=== PATIENT | female | born 1985 | race African-American/Black ===

== ENCOUNTER 2017-04-17 10:32 | Inpatient (IN) ==
[2017-04-17 11:07] LABS: Basophils % 0.2 % (0.0-0.8); Eosinophils # 0.1 10*3/uL (0.0-0.87); Eosinophils % 0.7 % (0.00-10.9); Hematocrit 39.2 VOL% (35.7-47.0); Immature Granulocytes % 0.6 %; Immature Granulocytes Absolute 0.05 #; Lymphocytes # 1.2 10*3/uL (1.4-4.0); Lymphocytes % 15.2 % (21.3-54.2); Mean Corpuscular HGB Conc 35.7 GM/DL (32-36); Mean Corpuscular Hemoglobin 33 PG (27-34); Mean Corpuscular Volume 91.4 FL (87-102); Mean Platelet Volume 10.3 FL (9.6-12.0); Monocytes # 0.7 10*3/uL (0.11-0.8); Monocytes % 9.2 % (1.7-12.7); Neutrophils % 74.1 % (38.7-73.9); Platelet Count 186 T/CUMM (130-400); Red Blood Count 4.29 MC/CUMM (3.8-5.5); Red Cell Distribution Width 13.9 % (9.3-17.3); White Blood Count 8.1 T/CUMM (4-12)
[2017-04-17 11:16] LABS: INR 0.9; PT Patient Result 9.7 SECS; Partial Thromboplastin Time 29.4 SECS (0-40)
[2017-04-17 11:40] LABS: Albumin 2.5 G/DL (3.4-5.0); Bilirubin,Total 0.4 MG/DL (0.2-1.0); Calcium 8.1 MG/DL (8.5-10.1); Osmolality,Calculated 274.4 MOS/KG (273-304); Uric Acid 5.3 MG/DL (2.6-6.0)
[2017-04-17] MEDS ORDERED: CALCIUM GLUCONATE 1,000 MG in SODIUM CHLORIDE 0.9% 100 ML IV PRN (12:05)
[2017-04-17] MEDS ORDERED: MAGNESIUM SULF RIDER 100 ML IV ONE (12:05)
[2017-04-17] MEDS ORDERED: MAGNESIUM SULF DRIP 40 GM/1,000 ML ML IV ONE (12:17)
[2017-04-17] MEDS: LACTATED RINGERS 1,000 ML IV SCH ×2 (12:37→23:20)
[2017-04-17] MEDS: MAGNESIUM SULF DRIP 40 GM/1,000 ML ML IV SCH (12:37)
[2017-04-17] MEDS: BETAMETH SODIUM PHOS/ACETATE 30 MG/5 ML VIAL IM SCH (13:28)
[2017-04-17 14:11] LABS: Basophils % 0.4 % (0.0-0.8); Eosinophils % 0.4 % (0.00-10.9); Hematocrit 38.9 VOL% (35.7-47.0); Hemoglobin 13.8 GM/DL (12.0-16.0); Immature Granulocytes % 0.4 %; Immature Granulocytes Absolute 0.03 #; Lymphocytes # 1.3 10*3/uL (1.4-4.0); Lymphocytes % 17.5 % (21.3-54.2); Mean Corpuscular HGB Conc 35.5 GM/DL (32-36); Mean Corpuscular Hemoglobin 32 PG (27-34); Mean Corpuscular Volume 90.5 FL (87-102); Mean Platelet Volume 10.3 FL (9.6-12.0); Monocytes # 0.6 10*3/uL (0.11-0.8); Monocytes % 8.2 % (1.7-12.7); Neutrophils # 5.5 10*3/uL (1.4-7.4); Neutrophils % 73.1 % (38.7-73.9); Platelet Count 188 T/CUMM (130-400); Red Cell Distribution Width 13.9 % (9.3-17.3); White Blood Count 7.5 T/CUMM (4-12)
[2017-04-17 14:41] LABS: Albumin 2.6 G/DL (3.4-5.0); Bilirubin,Total 0.5 MG/DL (0.2-1.0); Calcium 8.2 MG/DL (8.5-10.1); Osmolality,Calculated 273.4 MOS/KG (273-304); Potassium 3.8 MMOL/L (3.5-5.1); Total Protein 6.1 G/DL (6.4-8.3)
[2017-04-17] MEDS ORDERED: hydrALAZINE 20 MG/1 ML VIAL IV ONE ×2 (16:45→19:42)
--- NOTE | 2017-04-17 16:51 | OB/GYN History & Physical ---
History of Present Illness Chief complaint: [facility] History of present illness: Ms. Parsons is a 32 year old female Primigravida at 34 weeks sent from the office secondary to elevated blood pressures. Patient reports headache 2 days with altered vision of the last couple of days. She also reports swelling a significant weight gain. Home Medications Medication Instructions Recorded Confirmed Type Ferrous Gluconate [Iron] 1 mg PO DAILY 04/17/17 04/17/17 History Vit 108/Iron/Folic AC 1 mg PO DAILY 04/17/17 04/17/17 History [ One Tablet] Allergies Allergy/AdvReac Type Severity Reaction Status Date / Time No Known Allergies Allergy Verified 04/17/17 10:46 12 point system: reviewed and no additional remarkable complaints except as stated Medical,Surgical,& Family Hx - Medical History Reproductive: No history of: Ectopic , Complication - Surgical History Reproductive Surgeries: Patient denies;: Section - Social History Smoking Status: Never smoker Frequency of Alcohol Use: None 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 - 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 General appearance: no acute distress - Head Head exam: Present: normocephalic - ENT ENT exam: Present: normal exam - Neck Neck exam: Present: normal inspection - Respiratory Respiratory exam: Present: clear to auscultation bilaterally - Cardiovascular Cardiovascular exam: Present: regular rate and rhythm - GI/Abdominal GI/Abdominal exam: Present: normal bowel sounds, soft - Extremities Exam Extremities exam: Present: edema (+1 of the lower extremities bilaterally) - Back Exam Back exam: Present: normal inspection - Neurological Exam Neurological exam: Present: alert, oriented X3 - Psychiatric Psychiatric exam: Present: normal affect, normal mood - Skin Skin exam: Present: normal color, warm Assessment and Plan (1) Severe preeclampsia Status: Acute Assessment and plan: Patient admitted for magnesium sulfate and Cytotec induction with expected vaginal delivery. Will monitor blood pressures carefully Current Visit: Yes (2) 34 weeks gestation of Status: Acute Current Visit: Yes Results - Labs CBC & BMP: 04/18/17 13:52 04/18/17 13:52 Quality Measures - VTE Contraindication to Pharmacological VTE Prophylaxis: High Risk of Bleeding
[2017-04-17] MEDS ORDERED: ACETAMINOPHEN 500 MG TABLET PO PRN (19:56)
[2017-04-17 21:07] LABS: Apearance,Urine Slightly Hazy (Clear); Bilirubin,Urine Negative (Negative); Blood, Urine Negative (Negative); Glucose,Urine (UA) Negative (Negative); Ketones,Urine 80 mg/dL (Negative); Mucus,Urine Occasional /LPF (Occasional); Nitrite,Urine Negative (Negative); Protein,Urine Negative; RBC,Urine <1 /HPF (0-4); Squamous Epithelial Cell,Urine Occasional /HPF (0-10); Urine Color Yellow (Yellow); Urine Specific Gravity 1.009 (1.001-1.035); Urine Urobilinogen < 2.0 EU/DL (0.2-1.0); WBC,Urine 1 /HPF (0-6)
[2017-04-17 21:20] LABS: Bilirubin,Total 0.6 MG/DL (0.2-1.0); Calcium 8.1 MG/DL (8.5-10.1); Magnesium 5.5 MG/DL (1.8-2.4); Osmolality,Calculated 269.7 MOS/KG (273-304); Potassium 4.1 MMOL/L (3.5-5.1); Total Protein 7.2 G/DL (6.4-8.3)
[2017-04-17 21:33] LABS: Basophils % 0.2 % (0.0-0.8); Hematocrit 44.6 VOL% (35.7-47.0); Hemoglobin 15.5 GM/DL (12.0-16.0); Immature Granulocytes % 3.4 %; Immature Granulocytes Absolute 0.34 #; Lymphocytes # 0.7 10*3/uL (1.4-4.0); Lymphocytes % 7.2 % (21.3-54.2); Mean Corpuscular HGB Conc 34.8 GM/DL (32-36); Mean Corpuscular Hemoglobin 32 PG (27-34); Mean Platelet Volume 10.3 FL (9.6-12.0); Monocytes # 0.2 10*3/uL (0.11-0.8); Neutrophils # 8.6 10*3/uL (1.4-7.4); Neutrophils % 87.2 % (38.7-73.9); Platelet Count 194 T/CUMM (130-400); Red Blood Count 4.85 MC/CUMM (3.8-5.5); White Blood Count 9.9 T/CUMM (4-12)
[2017-04-18 01:50] LABS: Basophils % 0.2 % (0.0-0.8); Hematocrit 42.2 VOL% (35.7-47.0); Hemoglobin 14.7 GM/DL (12.0-16.0); Immature Granulocytes % 1.4 %; Immature Granulocytes Absolute 0.15 #; Lymphocytes # 0.8 10*3/uL (1.4-4.0); Lymphocytes % 7.4 % (21.3-54.2); Mean Corpuscular HGB Conc 34.8 GM/DL (32-36); Mean Corpuscular Hemoglobin 32 PG (27-34); Mean Corpuscular Volume 92.3 FL (87-102); Mean Platelet Volume 10.3 FL (9.6-12.0); Monocytes # 0.5 10*3/uL (0.11-0.8); Monocytes % 4.5 % (1.7-12.7); Neutrophils # 9.3 10*3/uL (1.4-7.4); Neutrophils % 86.5 % (38.7-73.9); Platelet Count 186 T/CUMM (130-400); Red Blood Count 4.57 MC/CUMM (3.8-5.5); Red Cell Distribution Width 14.1 % (9.3-17.3); White Blood Count 10.8 T/CUMM (4-12)
[2017-04-18 02:12] LABS: Albumin 2.5 G/DL (3.4-5.0); Bilirubin,Total 0.6 MG/DL (0.2-1.0); Calcium 7.6 MG/DL (8.5-10.1); Magnesium 5.5 MG/DL (1.8-2.4); Osmolality,Calculated 270.7 MOS/KG (273-304); Potassium 3.8 MMOL/L (3.5-5.1); Total Protein 6.1 G/DL (6.4-8.3)
[2017-04-18] MEDS: BETAMETH SODIUM PHOS/ACETATE 30 MG/5 ML VIAL IM SCH (02:25)
[2017-04-18] MEDS: MAGNESIUM SULF DRIP 40 GM/1,000 ML ML IV SCH (06:30)
[2017-04-18 07:45] LABS: Basophils % 0.1 % (0.0-0.8); Hematocrit 42.9 VOL% (35.7-47.0); Immature Granulocytes % 1.4 %; Immature Granulocytes Absolute 0.18 #; Lymphocytes # 0.8 10*3/uL (1.4-4.0); Mean Corpuscular Hemoglobin 32 PG (27-34); Mean Corpuscular Volume 91.1 FL (87-102); Mean Platelet Volume 10.3 FL (9.6-12.0); Monocytes # 0.4 10*3/uL (0.11-0.8); Monocytes % 3.5 % (1.7-12.7); Neutrophils # 11.2 10*3/uL (1.4-7.4); Platelet Count 211 T/CUMM (130-400); Red Blood Count 4.71 MC/CUMM (3.8-5.5); White Blood Count 12.6 T/CUMM (4-12)
[2017-04-18] MEDS ORDERED: OXYTOCIN/LR 20 UNIT/1,000 ML BAG IV SCH (08:00)
--- NOTE | 2017-04-18 08:06 | OB/GYN Progress Note ---
Assessment and Plan (1) Severe preeclampsia Status: Acute Assessment and plan: Patient admitted for magnesium sulfate and Cytotec induction with expected vaginal delivery. Will monitor blood pressures carefully Now that her membranes ruptured will discontinue the Cytotec and began Pitocin. We will continue to monitor blood pressures carefully as well as continue magnesium sulfate. 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 IUPC placed with ease Presentation: Vertex Heart Rate: 140s-150s with good [id number]-[id number] variability. No decelerations Barling: Contractions irregular - Respiratory Respiratory exam: Present: clear to auscultation bilaterally - Cardiovascular Cardiovascular exam: Present: regular rate and rhythm - Extremities Exam Extremities exam: Present: edema (+1 edema of the lower extremities bilaterally +1 deep tendon reflexes) - Neurological Exam Neurological exam: Present: alert, oriented X3 - Psychiatric Psychiatric exam: Present: normal affect, normal mood Results - Labs CBC & BMP: 04/18/17 07:38 04/18/17 01:39
[2017-04-18 08:26] LABS: Albumin 2.7 G/DL (3.4-5.0); Calcium 7.5 MG/DL (8.5-10.1); Osmolality,Calculated 269.8 MOS/KG (273-304); Potassium 4.1 MMOL/L (3.5-5.1); Total Protein 6.5 G/DL (6.4-8.3)
[2017-04-18] MEDS ORDERED: AMPICILLIN INJ 2,000 MG in SODIUM CHLORIDE 0.9% 50 ML IV SCH (09:30)
[2017-04-18] MEDS ORDERED: fentaNYL 2 MCG/ROPIV 0.2% EPID 150 ML EPIDURAL SCH (11:56)
[2017-04-18] MEDS ORDERED: ePHEDrine 50 MG/ML AMP IV PRN (11:56)
[2017-04-18] MEDS ORDERED: FAMOTIDINE 20 MG/2 ML VIAL IV ONE (11:56)
[2017-04-18] MEDS ORDERED: PROMETHAZINE 25 MG/1 ML VIAL IM ONE (11:56)
[2017-04-18] MEDS ORDERED: CITRIC ACID/SODIUM CITRATE 30 ML UDCUP PO ONE (11:56)
[2017-04-18] MEDS ORDERED: LACTATED RINGERS 1,000 ML IV ONE (11:56)
[2017-04-18] MEDS ORDERED: diphenhydrAMINE 50 MG/1 ML VIAL IV PRN ×2 (11:56)
[2017-04-18] MEDS ORDERED: hydrOXYzine HCL 25 MG/1 ML VIAL IM PRN (11:56)
[2017-04-18] MEDS ORDERED: ONDANSETRON 4 MG/2 ML VIAL ONE (12:29)
[2017-04-18 14:01] LABS: Basophils % 0.2 % (0.0-0.8); Hematocrit 45.1 VOL% (35.7-47.0); Hemoglobin 15.5 GM/DL (12.0-16.0); Immature Granulocytes % 1.2 %; Immature Granulocytes Absolute 0.17 #; Lymphocytes # 0.9 10*3/uL (1.4-4.0); Lymphocytes % 6.1 % (21.3-54.2); Mean Corpuscular HGB Conc 34.4 GM/DL (32-36); Mean Corpuscular Hemoglobin 32 PG (27-34); Mean Platelet Volume 10.6 FL (9.6-12.0); Monocytes # 0.9 10*3/uL (0.11-0.8); Monocytes % 6.3 % (1.7-12.7); Neutrophils # 12.6 10*3/uL (1.4-7.4); Neutrophils % 86.2 % (38.7-73.9); Platelet Count 202 T/CUMM (130-400); Red Blood Count 4.85 MC/CUMM (3.8-5.5); Red Cell Distribution Width 14.4 % (9.3-17.3); White Blood Count 14.7 T/CUMM (4-12)
[2017-04-18 14:29] LABS: Albumin 2.7 G/DL (3.4-5.0); Bilirubin,Total 0.7 MG/DL (0.2-1.0); Calcium 7.4 MG/DL (8.5-10.1); Osmolality,Calculated 267.1 MOS/KG (273-304); Potassium 3.9 MMOL/L (3.5-5.1); Total Protein 6.7 G/DL (6.4-8.3)
[2017-04-18 15:30] LABS: Apearance,Urine CLEAR (Clear); Bilirubin,Urine Negative (Negative); Blood, Urine Negative (Negative); Glucose,Urine (UA) Negative (Negative); Hyaline Casts,Urine 148 /LPF (0-3); Ketones,Urine 80 mg/dL (Negative); Mucus,Urine Occasional /LPF (Occasional); Nitrite,Urine Negative (Negative); Protein,Urine Negative; RBC,Urine 1 /HPF (0-4); Squamous Epithelial Cell,Urine Occasional /HPF (0-10); Urine Color Yellow (Yellow); Urine Specific Gravity 1.028 (1.001-1.035); Urine Urobilinogen < 2.0 EU/DL (0.2-1.0); WBC,Urine 1 /HPF (0-6)
[2017-04-18] MEDS ORDERED: SODIUM CHLORIDE 0.9% 100 ML IV ONE (15:50)
[2017-04-18 16:58] LABS: Cord Arterial Blood HCO3 20.3 MMOL/L
[2017-04-18] MEDS ORDERED: ONDANSETRON 4 MG/2 ML VIAL IV PRN (16:59)
[2017-04-18] MEDS ORDERED: SIMETHICONE CHEW 80 MG TABLET PO PRN (16:59)
[2017-04-18] MEDS ORDERED: IBUPROFEN 800 MG TABLET PO PRN (16:59)
[2017-04-18] MEDS ORDERED: ACETAMINOPHEN 325 MG TABLET PO PRN (16:59)
[2017-04-18] MEDS ORDERED: MAGNESIUM HYDROXIDE SUSP 30 ML UDCUP PO PRN (16:59)
[2017-04-18] MEDS ORDERED: OXYTOCIN/LR 20 UNIT/1,000 ML BAG IV ONE (16:59)
[2017-04-18] MEDS ORDERED: RHO(D) IMMUNE GLOBULIN 300 MCG SYRINGE IM ONE (16:59)
[2017-04-18] MEDS ORDERED: LACTATED RINGERS 1,000 ML IV SCH (17:00)
[2017-04-18 17:01] LABS: Cord Venous Blood HCO3 20.9 MMOL/L; Cord Venous Blood PCO2 45.1 MMHG; Cord Venous Blood PO2 21.4
--- NOTE | 2017-04-18 17:01 | Operative Note ---
Date of procedure: 04/18/17 Procedure Preformed: Following informed consent patient taken to the operating room where spinal anesthesia was administered without difficulty. She is prepped and draped in usual fashion placed in dorsal supine position with a leftward tilt. A Pfannenstiel skin incision made with scalpel and carried through to the underlying layer fascia with Bovie. The fascia incision was excised in the midline and extended laterally with Barger scissors.. The inferior and superior aspects of the fascial incision were grasped with Tari clamps, elevated and the rectus muscles dissected off bluntly. The rectus muscles were then in the midline and the peritoneum identified and entered with Metzenbaum scissors. This was then extended superiorly and inferiorly with good visualization of the bladder. The bladder blade was then inserted and the vesicouterine peritoneum identified and entered with Metzenbaum scissors. This was then extended laterally and the bladder flap created digitally. The bladder blade was then reinserted and the uterus incised in transverse fashion with scalpel. The 's head was then delivered atraumatically. The nose mouth bulb suctioned. Cord clamped cut and the handed off to waiting nurses. Cord blood was sent. The placenta was then removed manually and the uterus cleared all clots and debris. The uterine incision was repaired with # 1 Vicryl in a running locked fashion. A second layer of the same suture was used to obtain excellent hemostasis. The gutters were cleared of all clots and debris and once again hemostasis was found to be satisfactory. Therefore all instruments were removed from the abdomen. The fascia was repaired with [0] Vicryl in a running fashion. The skin was closed with Ensorb princess. At the end of the procedure all sponge lap needle counts correct 2. Baby and mother in stable condition. Surgeon / Physician: Audrey Zuñiga Post-op diagnosis: same Findings: Liveborn male weight and Apgars unavailable at time of dictation Specimens: other (Cord blood placenta) Estimated blood loss: other (400 mL) Condition: stable Anesthesia: epidural Disposition: floor
[2017-04-18] MEDS ORDERED: MORPHINE 10 MG/10 ML VIAL ONE (17:27)
[2017-04-18 19:54] LABS: Basophils % 0.1 % (0.0-0.8); Hematocrit 40.6 VOL% (35.7-47.0); Hemoglobin 13.9 GM/DL (12.0-16.0); Immature Granulocytes Absolute 0.17 #; Lymphocytes # 0.6 10*3/uL (1.4-4.0); Lymphocytes % 3.2 % (21.3-54.2); Mean Corpuscular HGB Conc 34.2 GM/DL (32-36); Mean Corpuscular Hemoglobin 32 PG (27-34); Mean Corpuscular Volume 92.7 FL (87-102); Mean Platelet Volume 10.2 FL (9.6-12.0); Monocytes # 1.3 10*3/uL (0.11-0.8); Monocytes % 7.3 % (1.7-12.7); Neutrophils # 15.7 10*3/uL (1.4-7.4); Neutrophils % 88.4 % (38.7-73.9); Platelet Count 196 T/CUMM (130-400); Red Blood Count 4.38 MC/CUMM (3.8-5.5); White Blood Count 17.8 T/CUMM (4-12)
[2017-04-18 20:34] LABS: Albumin 2.5 G/DL (3.4-5.0); Bilirubin,Total 0.7 MG/DL (0.2-1.0); Calcium 7.2 MG/DL (8.5-10.1); Potassium 4.2 MMOL/L (3.5-5.1)
[2017-04-18 20:55] LABS: Lymphocytes 5 % (20-55); Platelet Estimate Normal; Segmented Neutrophils 91 % (50-85); Total Cells Counted 100
[2017-04-18] MEDS: LABETALOL 100 MG TABLET PO SCH (22:20)
[2017-04-18] MEDS: DOCUSATE SODIUM 100 MG CAPSULE PO SCH (23:52)
[2017-04-19] MEDS: MAGNESIUM SULF DRIP 40 GM/1,000 ML ML IV SCH (00:06)
[2017-04-19] MEDS: LACTATED RINGERS 1,000 ML IV SCH (03:55)
[2017-04-19 05:30] LABS: Albumin 2.3 G/DL (3.4-5.0); Bilirubin,Total 0.6 MG/DL (0.2-1.0); Calcium 6.5 MG/DL (8.5-10.1); Osmolality,Calculated 271.8 MOS/KG (273-304); Potassium 3.9 MMOL/L (3.5-5.1); Total Protein 5.5 G/DL (6.4-8.3)
[2017-04-19 05:32] LABS: Basophils % 0.1 % (0.0-0.8); Hematocrit 38.9 VOL% (35.7-47.0); Hemoglobin 13.1 GM/DL (12.0-16.0); Immature Granulocytes % 1.2 %; Immature Granulocytes Absolute 0.18 #; Lymphocytes # 0.5 10*3/uL (1.4-4.0); Lymphocytes % 3.1 % (21.3-54.2); Mean Corpuscular HGB Conc 33.7 GM/DL (32-36); Mean Corpuscular Hemoglobin 32 PG (27-34); Mean Corpuscular Volume 93.7 FL (87-102); Mean Platelet Volume 10.8 FL (9.6-12.0); Monocytes # 1.1 10*3/uL (0.11-0.8); Monocytes % 7.3 % (1.7-12.7); Neutrophils # 12.8 10*3/uL (1.4-7.4); Neutrophils % 88.3 % (38.7-73.9); Platelet Count 187 T/CUMM (130-400); Red Blood Count 4.15 MC/CUMM (3.8-5.5); Red Cell Distribution Width 14.3 % (9.3-17.3); White Blood Count 14.5 T/CUMM (4-12)
[2017-04-19 06:57] LABS: Basophils % 0.1 % (0.0-0.8); Hematocrit 37.1 VOL% (35.7-47.0); Hemoglobin 12.7 GM/DL (12.0-16.0); Immature Granulocytes % 0.8 %; Immature Granulocytes Absolute 0.11 #; Lymphocytes # 0.5 10*3/uL (1.4-4.0); Lymphocytes % 3.6 % (21.3-54.2); Mean Corpuscular HGB Conc 34.2 GM/DL (32-36); Mean Corpuscular Hemoglobin 32 PG (27-34); Mean Platelet Volume 10.4 FL (9.6-12.0); Monocytes # 1.2 10*3/uL (0.11-0.8); Monocytes % 8.5 % (1.7-12.7); Neutrophils # 12.5 10*3/uL (1.4-7.4); Platelet Count 171 T/CUMM (130-400); Red Blood Count 3.99 MC/CUMM (3.8-5.5); Red Cell Distribution Width 14.3 % (9.3-17.3); White Blood Count 14.4 T/CUMM (4-12)
[2017-04-19 07:17] LABS: Giant Platelets Few; Hypochromasia Slight; Lymphocytes 2 % (20-55); Platelet Estimate Normal; Segmented Neutrophils 94 % (50-85); Total Cells Counted 100
[2017-04-19 08:03] LABS: Albumin 2.1 G/DL (3.4-5.0); Bilirubin,Total 0.5 MG/DL (0.2-1.0); Calcium 6.5 MG/DL (8.5-10.1); Total Protein 5.1 G/DL (6.4-8.3)
[2017-04-19 08:04] LABS: Osmolality,Calculated 273.7 MOS/KG (273-304); Potassium 3.9 MMOL/L (3.5-5.1)
--- NOTE | 2017-04-19 08:06 | Anesthesia Post-Op ---
Anesthesia Post OP - Post Ansesthetic Evaluation Patient seen in post op: Yes Resp: within normal limits CV: within normal limits Mental: within normal limits Temp: within normal limits [id number]: within normal limits Nausea and Vomiting: within normal limits Pain: within normal limits
[2017-04-19 08:21] LABS: Lymphocytes 4 % (20-55); Platelet Estimate Adequate; Segmented Neutrophils 93 % (50-85); Total Cells Counted 100
[2017-04-19 08:22] LABS: Giant Platelets Few; Hypochromasia Slight; Ovalocytes Slight
[2017-04-19] MEDS: LABETALOL 100 MG TABLET PO SCH ×2 (08:54→20:44)
--- NOTE | 2017-04-19 09:13 | OB/GYN Progress Note ---
Assessment and Plan (1) Severe preeclampsia Status: Acute Assessment and plan: Patient admitted for magnesium sulfate and Cytotec induction with expected vaginal delivery. Will monitor blood pressures carefully Current Visit: Yes (2) 34 weeks gestation of Status: Acute Current Visit: Yes (3) delivery delivered Status: Acute Assessment and plan: Continue magnesium sulfate until 24 hours . We will then can also continue p.o. labetalol for gestational hypertension. 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 Denies headache visual changes or epigastric pain. 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 - 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 Vitals: Vital Signs Temp Pulse Resp BP Pulse Ox 04/18/17 22:00 98.1 F 04/18/17 21:00 98.2 F 04/18/17 19:53 98.1 F 04/18/17 19:34 98.1 F 04/18/17 19:30 98.1 F 04/18/17 19:26 98.1 F 04/18/17 19:00 98.1 F 04/18/17 18:44 78 18 150/85 04/18/17 18:14 88 18 152/86 98 04/18/17 17:14 87 20 138/74 04/18/17 16:59 97.0 F L 83 18 141/75 General appearance: no acute distress - Gyencological / Post Surgical Post Surgical Exam Extremities HEAD ATHLETIC TRAINER: Present: normal Abdomen obstetrics progress note: Present: normal appearance, soft Incision OB: Present: normal, dry, intact - Head Head exam: Present: normocephalic - Neck Neck exam: Present: normal inspection - Respiratory Respiratory exam: Present: clear to auscultation bilaterally - Cardiovascular Cardiovascular exam: Present: regular rate and rhythm - GI/Abdominal GI/Abdominal exam: Present: normal bowel sounds, soft - Extremities Exam Extremities exam: Present: normal inspection - Back Exam Back exam: Present: normal inspection - Neurological Exam Neurological exam: Present: alert, oriented X3 - Psychiatric Psychiatric exam: Present: normal affect, normal mood - Skin Skin exam: Present: normal color, warm Results - Labs CBC & BMP: 04/19/17 06:46 04/19/17 07:15
[2017-04-19 11:43] LABS: Basophils % 0.1 % (0.0-0.8); Hematocrit 36.9 VOL% (35.7-47.0); Hemoglobin 12.6 GM/DL (12.0-16.0); Immature Granulocytes % 0.9 %; Immature Granulocytes Absolute 0.12 #; Lymphocytes # 0.5 10*3/uL (1.4-4.0); Lymphocytes % 4.1 % (21.3-54.2); Mean Corpuscular HGB Conc 34.1 GM/DL (32-36); Mean Corpuscular Hemoglobin 32 PG (27-34); Mean Corpuscular Volume 93.4 FL (87-102); Mean Platelet Volume 10.4 FL (9.6-12.0); Monocytes # 0.8 10*3/uL (0.11-0.8); Monocytes % 6.3 % (1.7-12.7); Neutrophils # 11.6 10*3/uL (1.4-7.4); Neutrophils % 88.6 % (38.7-73.9); Platelet Count 171 T/CUMM (130-400); Red Blood Count 3.95 MC/CUMM (3.8-5.5); Red Cell Distribution Width 14.4 % (9.3-17.3); White Blood Count 13.1 T/CUMM (4-12)
[2017-04-19 12:06] LABS: Hypochromasia Slight
[2017-04-19 12:07] LABS: Platelet Estimate Adequate
[2017-04-19 12:36] LABS: Albumin 2.2 G/DL (3.4-5.0); Bilirubin,Total 0.5 MG/DL (0.2-1.0); Calcium 6.6 MG/DL (8.5-10.1); Total Protein 5.3 G/DL (6.4-8.3)
[2017-04-19 12:37] LABS: Osmolality,Calculated 275.5 MOS/KG (273-304); Potassium 4.1 MMOL/L (3.5-5.1)
[2017-04-19] MEDS: DOCUSATE SODIUM 100 MG CAPSULE PO SCH (20:45)
[2017-04-19] MEDS: MULTIVITAMIN (PRENATAL) TABLET PO SCH (21:06)
--- NOTE | 2017-04-20 11:45 | OB/GYN Progress Note ---
Assessment and Plan (1) Severe preeclampsia Status: Acute Assessment and plan: Patient admitted for magnesium sulfate and Cytotec induction with expected vaginal delivery. Will monitor blood pressures carefully Current Visit: Yes (2) 34 weeks gestation of Status: Acute Current Visit: Yes (3) delivery delivered Status: Acute Assessment and plan: Continue magnesium sulfate until 24 hours . We will then can also continue p.o. labetalol for gestational hypertension. Current Visit: Yes (4) Gestational hypertension Status: Acute Assessment and plan: Increase labetalol to 200 mg p.o. 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 Vitals: Vital Signs Resp 04/20/17 10:00 20 04/20/17 09:00 20 04/20/17 08:00 20 04/20/17 05:52 18 04/20/17 05:00 16 04/20/17 04:00 18 04/20/17 01:44 20 04/20/17 01:00 18 General appearance: no acute distress - Gyencological / Post Surgical Post Surgical Exam Extremities PLANNING MANAGER: Present: normal Abdomen obstetrics progress note: Present: normal appearance, soft Incision OB: Present: normal, dry, intact - Head Head exam: Present: normocephalic - Respiratory Respiratory exam: Present: clear to auscultation bilaterally - Cardiovascular Cardiovascular exam: Present: regular rate and rhythm - GI/Abdominal GI/Abdominal exam: Present: normal bowel sounds, soft - Extremities Exam Extremities exam: Present: normal inspection - Back Exam Back exam: Present: normal inspection - Neurological Exam Neurological exam: Present: alert, oriented X3 - Psychiatric Psychiatric exam: Present: normal affect, normal mood - Skin Skin exam: Present: normal color, warm Results - Labs CBC & BMP: 04/19/17 11:36 04/19/17 11:36
[2017-04-20] MEDS: LABETALOL 200 MG TABLET PO SCH ×2 (12:30→21:30)
[2017-04-20] MEDS: MULTIVITAMIN (PRENATAL) TABLET PO SCH (17:37)
[2017-04-20] MEDS: DOCUSATE SODIUM 100 MG CAPSULE PO SCH ×2 (17:38→21:30)
[2017-04-20] MEDS: LABETALOL 100 MG TABLET PO SCH (17:38)
[2017-04-21] MEDS: LABETALOL 200 MG TABLET PO SCH (07:45)
[2017-04-21 10:23] VITALS: BP 189/97
[2017-04-21] MEDS: MULTIVITAMIN (PRENATAL) TABLET PO SCH (10:27)
[2017-04-21] MEDS: DOCUSATE SODIUM 100 MG CAPSULE PO SCH (10:27)
--- NOTE | 2017-04-21 11:16 | Discharge Summary ---
Hospital Course - Hospital Course Hospital Course: This is a 32-year-old female admitted at 34 weeks gestation secondary to severe preeclampsia. She subsequent delivered a liveborn via section. Hospital course involved management of her hypertension with both magnesium sulfate and p.o. labetalol. By postoperative day #3 her blood pressure was stable enough for discharge. She is breast-feeding and unsure of her plan for contraception at this time. Diagnosis - Discharge Diagnosis (1) Severe preeclampsia Status: Acute (2) 34 weeks gestation of Status: Acute (3) delivery delivered Status: Acute (4) Gestational hypertension Status: Acute Discharge Plan - Discharge Data Disposition: Disch To Home/Self Care Condition at Discharge: Stable Discharge Diet: advance to your usual diet Activity: no lifting, other (Pelvic rest) Hygiene: may shower Weight Bearing at Discharge: weight bear as tolerated Driving: not until seen by doctor Contact your physician if you experience:: fever over 101, Difficulty voiding, Redness or swelling, Nausea/Vomiting, Shortness of breath, Bleeding, pain uncontrolled by pain medications - Discharge Medications New HYDROcodone/ACETAMIN 5-325 [Hill 5-325] 2 tablet PO Q6H PRN #40 tablet PRN Reason: Pain Severe (8-10) Labetalol Tab [Trandate Tab] 200 mg PO BID #60 tablet No Action Ferrous Gluconate [Iron] 1 mg PO DAILY Vit 108/Iron/Folic AC [ One Tablet] 1 mg PO DAILY - Follow Up or Referral Follow Up: Audrey Zuñiga MD [Physician] - 1 Week - Forms/Instructions Exam - 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 Vitals: Period Temp Pulse Resp BP Sys/Rodriguez Pulse Ox Last 24 Hr 97.2 F-100.3 F 57-94 18-22 150-189/86-97 97-100 General appearance: no acute distress - Head Head exam: Present: normocephalic - Eye Pupils: Present: normal accommodation - ENT ENT exam: Present: normal exam - Neck Neck exam: Present: normal inspection - Respiratory Respiratory exam: Present: clear to auscultation bilaterally - Cardiovascular Cardiovascular exam: Present: regular rate and rhythm - GI/Abdominal GI/Abdominal exam: Present: normal bowel sounds, soft, other (Uterus firm and well contracted the level of the umbilicus. Incision clean dry and intact.) - Extremities Exam Extremities exam: Present: normal inspection - Back Exam Back exam: Present: normal inspection - Neurological Exam Neurological exam: Present: alert, oriented X3 - Psychiatric Psychiatric exam: Present: normal affect, normal mood - Skin Skin exam: Present: normal color, warm DS: Provider Date of admission: 04/17/17 12:05 Primary care physician: . No PCP Attending physician on admission: Audrey Zuñiga MD Consults: 04/17/17 12:05 Consult to Physician [CONS] Routine Comment: Consulting Provider: Consult to Specialist Group: Neonatology 04/18/17 16:59 Consult to Craft Superintendent [CONS] Routine Consult Craft Superintendent: Breast Feeding Discharging clinician: Audrey Zuñiga MD
== END 2017-04-21 12:39 | disposition home or self-care (01) | DRG 540 ==
LOC: N.LDOUT 10:32 → N.LD 10:35
PROVIDERS: ADMIT Obstetrics & Gynecology; ATTEND Obstetrics & Gynecology
PROC: LDCSECT (ICD-10-PCS; 2017-04-18 16:00)